=== PATIENT | male | born 1960 | race Caucasian/White ===

== ENCOUNTER 2016-11-24 10:40 | Emergency (ER) | payer OTHER ==
[2016-11-24 10:51] VITALS: TEMP 98
[2016-11-24] MEDS ORDERED: Sodium Chloride 0.9% 1,000 ML IV ONE (11:03)
[2016-11-24] MEDS ORDERED: Sodium Chloride 0.9% 1,000 ML ONE (11:14)
[2016-11-24 11:25] LABS: BASO # 0.1 K/uL (0.0-0.2); BASO % 1.3 % (0.0-2.0); EOS # 0.2 K/uL (0.0-0.7); EOS % 4.2 % (0.0-4.0); HEMATOCRIT 42.3 % (35.0-51.0); LYMPH # 1.3 K/uL (1.0-4.3); LYMPH % 33.4 % (20.0-40.0); MEAN CELL VOLUME 92.5 fL (80.0-94.0); MEAN CORPUSCULAR HGB CONC 33.6 g/dL (33.0-37.0); MEAN PLATELET VOLUME 8.8 fL (7.2-11.7); MONO # 0.5 K/uL (0.0-0.8); MONO % 12.3 % (0.0-10.0); RED CELL DISTRIBUTION WIDTH 14.4 % (11.5-14.5); WHITE BLOOD COUNT 3.8 K/uL (4.8-10.8)
[2016-11-24 11:34] LABS: CHLORIDE 101 mmol/L (98-107)
[2016-11-24 11:35] LABS: POTASSIUM 3.8 mmol/L (3.6-5.2); SODIUM 138 mmol/L (132-148)
[2016-11-24 11:37] LABS: ALB/GLOB RATIO 1.5 (1.0-2.1); ALKALINE PHOSPHATASE 54 U/L (38-126); AST/SGOT 43 U/L (17-59); BILIRUBIN,TOTAL 0.7 mg/dL (0.2-1.3); CARBON DIOXIDE 31 mmol/L (22-30); GFR AFRICAN-AMERICAN > 60; TOTAL PROTEIN 6.7 g/dL (6.3-8.3)
[2016-11-24 11:38] LABS: ALT/SGPT 43 U/L (21-72); BLOOD UREA NITROGEN 12 mg/dL (9-20); CALCIUM 9.1 mg/dl (8.6-10.4); GLUCOSE,RANDOM 89 mg/dL (75-110)
[2016-11-24 12:35] VITALS: RESP 16
--- NOTE | 2016-11-24 13:44 | C.PDOC ---
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 Patient states he felt like he was going to pass out, but denies full syncope. He states he began feeling symptoms after going from crouching down to standing. He denies chest pain, palpitations, cough, fever, visual changes, extremity weakness, sensory changes. Patient reports history of hyperlipidemia, CAD with 1 cardiac stent. Symptoms resolved on ED arrival. Time Seen by Provider: 11/24/16 10:44 Chief Complaint (Nursing): Syncope History Per: Patient History/Exam Limitations: no limitations Onset/Duration Of Symptoms: Hrs Current Symptoms Are (Timing): Gone Activity At Onset Of Symptoms: Had Just Stood up Seizure Or Post-ictal Symptoms: None Fall Associated With With Symptoms: No Severity: Mild Past Medical History Reviewed: Historical Data, Nursing Documentation, Vital Signs Vital Signs: Last Vital Signs Temp 98 F 11/24/16 10:42 Pulse 59 L 11/24/16 13:58 Resp 16 11/24/16 13:58 BP 145/82 11/24/16 13:58 Pulse Ox 98 11/24/16 13:58 - Medical History PMH: Hypercholesterolemia Family History: States: No Known Family Hx - Social History Hx Alcohol Use: No Hx Substance Use: No Review Of Systems Except As Marked, All Systems Reviewed And Found Negative. Constitutional: Negative for: Fever, Chills Cardiovascular: Negative for: Chest Pain, Palpitations Respiratory: Negative for: Cough, Shortness of Breath, Wheezing Gastrointestinal: Negative for: Nausea, Vomiting, Abdominal Pain, Diarrhea Skin: Negative for: Rash Neurological: Positive for: Other (near syncope). Negative for: Headache Physical Exam - Physical Exam Appears: Non-toxic, No Acute Distress, Other (comfortable) Skin: Normal Color, Warm, Dry Head: Normacephalic Eye(s): bilateral: Normal Inspection Oral Mucosa: Moist Neck: Supple Chest: Symmetrical Cardiovascular: Rhythm Regular Respiratory: Normal Breath Sounds, No Rales, No Rhonchi, No Wheezing Gastrointestinal/Abdominal: Normal Exam, Bowel Sounds, Soft, No Tenderness, No Guarding, No Rebound Back: Normal Inspection Extremity: Normal ROM, No Pedal Edema, No Calf Tenderness Neurological/Psych: Oriented x3, Normal Speech, Normal Cognition, Normal Cranial Nerves, No Cerebellar Signs, Normal Motor, Normal Sensation Gait: Steady ED Course And Treatment - Laboratory Results Result Diagrams: 11/24/16 11:20 11/24/16 11:20 ECG: Interpreted By Me, Viewed By Me (NSR 66 bpm, normal axis, no acute ST/T wave changes) ECG Rhythm: Sinus Rhythm ECG Interpretation: Normal O2 Sat by Pulse Oximetry: 99 (RA) Pulse Ox Interpretation: Normal Progress Note: Blood work, EKG ordered and reviewed. Patient given IV NS bolus. Orthostatic vitals done and WNL. Reevaluation Time: 13:55 Reassessment Condition: Improved (Patient reassessed, is resting comfortably, currently asymptomatic. Blood work and EKG WNL. Suspect vasovagal episode. Patient instructed to drink plenty of fluids, and to follow up with PMD in 1-2 days. He understands he should return to ED if symptoms worsen.) Disposition Counseled Patient/Family Regarding: Studies Performed, Diagnosis, Need For Followup - Disposition Referrals: Weston Strange DO [[facility]] - Disposition: HOME/ ROUTINE Disposition Time: 13:55 Condition: STABLE Additional Instructions: FOLLOW UP WITH YOUR DOCTOR IN 1-2 DAYS DRINK PLENTY OF FLUIDS RETURN TO ER IF YOU DEVELOP ANY CONCERNING SYMPTOMS Instructions: Near Syncope (ED) Print Language: JAPANESE - POA Present On Arrival: None - Clinical Impression Clinical Impression: Vasovagal episode - Scribe Statement The provider has reviewed the documentation as recorded by the Scribe Josh Rucker All medical record entries made by the Mikaibkylee were at my direction and personally dictated by me. I have reviewed the chart and agree that the record accurately reflects my personal performance of the history, physical exam, medical decision making, and the department course for this patient. I have also personally directed, reviewed, and agree with the discharge instructions and disposition.
[2016-11-24 13:58] VITALS: BP 145/82; PULSE 59
[2016-12-01 05:16] VITALS: O2SAT 99
--- NOTE | 2016-12-02 01:42 | CARD ---
APPROVED REPORT EKG Measurement Heart [id number] <Conclusion> Normal sinus rhythm Possible Inferior infarct, age undetermined Abnormal ECG
== END 2016-11-24 14:15 | disposition home or self-care (01) ==
LOC: C.ER 10:40
DX: R55 Syncope and collapse (principal)

== ENCOUNTER 2018-10-16 09:53 | Observation (INO) | payer OTHER | END 2018-10-18 15:54 | disposition home or self-care (01) | LOC: C.3T 10-17 01:25 → C.ER 09:53 → C.3T 15:17 ==